=== PATIENT | female | born 1945 | race Caucasian/White ===

== ENCOUNTER 2017-12-13 11:06 | Emergency (ER) | payer MEDICARE ==
--- NOTE | 2017-12-13 13:01 | UC ---
Lower Extremity/Ankle HPI - HPI Summary HPI Summary: 72-year-old female presents with one week history of intermittent nocturnal leg cramps to her left lower leg. States cramps wake her from her sleep 2-3 times a night. She has to get out of bed and stretcher leg. Pain typically resolves after a few minutes. Denies fever, chills, chest pain, shortness of breath, redness or swelling of leg, numbness, tingling or weakness the extremity. - History of Current Complaint Chief Complaint: UCLowerExtremity Stated Complaint: LOWER LEG PAIN Time Seen by Provider: 12/13/17 12:25 Hx Obtained From: Patient Onset/Duration: Other - see HPI Severity Currently: None Pain Intensity: 0 Aggravating Factor(s): Nothing Alleviating Factor(s): Other - stretching Able to Bear Weight: Yes - Risk Factors DVT Risk Factors: Negative - Allergies/Home Medications Allergies/Adverse Reactions: Allergies Allergy/AdvReac Type Severity Reaction Status Date / Time No Known Allergies Allergy Verified 12/13/17 11:25 Home Medications: Home Medications Hydroxychloroquine TAB* [Plaquenil TAB*] 200 mg PO BID 12/13/17 [History Confirmed 12/13/17] Lisinopril/HCTZ 12/22.5(NF) [Zestoretic 12/22.5(NF)] 1 tab PO DAILY 12/13/17 [ History Confirmed 12/13/17] Naproxen Sodium [Aleve] 2 tab PO ONCE PRN 12/13/17 [History Confirmed 12/13/17] Rosuvastatin (NF) [Crestor (NF)] 10 mg PO DAILY 12/13/17 [History Confirmed 05/28] Venlafaxine EXT RELEASE CAP* [Effexor Xr CAP*] 75 mg PO DAILY 12/13/17 [History Confirmed 12/13/17] Zolpidem TAB* [Ambien TAB*] 5 mg PO BEDTIME PRN 12/13/17 [History Confirmed 05/28] predniSONE TAB* [Deltasone 10 MG TAB*] 10 mg PO DAILY 12/13/17 [History Confirmed 12/13/17] PMH/Surg Hx/FS Hx/Imm Hx - Additional Past Medical History Additional PMH: Rheumatoid arthritis Previously Healthy: Yes Endocrine History: Dyslipidemia Cardiovascular History: Hypertension Psychological History: Depression - Surgical History Surgical History: Yes Surgery Procedure, Year, and Place: cervical fusion. bilateral hip replacements - Family History Family History: Noncontributory - Social History Occupation: Retired Lives: With Family Alcohol Use: Daily Alcohol Amount: 1 glass of wine daily Substance Use Type: None Smoking Status (MU): Never Smoked Tobacco Review of Systems Constitutional: Negative Skin: Negative Respiratory: Negative Cardiovascular: Negative Motor: Negative Neurovascular: Negative Musculoskeletal: Other: - see HPI All Other Systems Reviewed And Are Negative: Yes Physical Exam Triage Information Reviewed: Yes Appearance: Well-Appearing, No Pain Distress, Well-Nourished Vital Signs: Initial Vital Signs Temp 97 F 12/13/17 11:22 Pulse 95 12/13/17 11:22 Resp 18 12/13/17 11:22 BP 134/83 12/13/17 11:22 Pulse Ox 98 12/13/17 11:22 Respiratory: Positive: Lungs clear, Normal breath sounds, No respiratory distress Cardiovascular: Positive: RRR, No Murmur, Pulses Normal, Brisk Capillary Refill Musculoskeletal: Positive: Strength Intact, ROM Intact, No Edema, Other: - Mild tenderness to distal, medial left calf. Calf supple. No tenderness over the deep venous system. Neurological: Positive: Alert, Other: - Sensation intact distally. Skin Exam: Normal - No bruising, erythema, rashes, or lesions noted. Lower Extremity Course/Dx - Course Course Of Treatment: 72-year-old female with one-week history of intermittent nocturnal leg cramps to her left leg. She is without pain at present. Exam unremarkable except for some mild tenderness over the distal medial calf. She has no risk factors for DVT. Her Wells score is 0. Recommend symptomatic treatment using gentle Stretches especially prior to bedtime. She is to follow- up with her primary care provider in one week if symptoms persist. Warning symptoms were reviewed with patient. She verbalizes understanding and agrees with plan of care. - Differential Dx/Diagnosis Differential Diagnosis/HQI/PQRI: Contusion, DVT, Sprain, Tendonitis Provider Diagnoses: nocturnal leg cramps Discharge - Sign-Out/Discharge Documenting (check all that apply): Patient Departure All imaging exams completed and their final reports reviewed: No Studies - Discharge Plan Condition: Stable Disposition: HOME Patient Education Materials: Leg Cramps (ED) Referrals: Gudino,Verito, MD [Primary Care Provider] - 7 Days (If symptoms persist.) Additional Instructions: Most cases of leg cramps are muscular. I do not see any evidence of a blood clot at this time. I recommend doing gentle stretching exercises especially before bedtime. Follow-up with your primary care provider in 7 days if symptoms persist. Seek immediate medical attention in the emergency room if you develop any chest pain, shortness of breath, redness or swelling of the lower leg, or any worsening of symptoms. - Billing Disposition and Condition Condition: STABLE Disposition: Home - Attestation Statements Provider Attestation: Per institutional requirements, I have reviewed the chart, however, I was not consulted specifically or made aware of this patient by the midlevel provider. I did not personally evaluate, interact with , or disposition this patient.
== END 2017-12-13 13:06 | disposition home or self-care (01) ==
LOC: UCEAST 11:06
DX: R25.2 Cramp and spasm (principal); M79.605 Pain in left leg; M06.9 Rheumatoid arthritis, unspecified; E78.5 Hyperlipidemia, unspecified; I10 Essential (primary) hypertension; F32.9 Major depressive disorder, single episode, unspecified; Z79.899 Other long term (current) drug therapy
CPT/HCPCS: 99201; G0463